=== PATIENT | male | born 1995 ===

== ENCOUNTER 2023-02-23 20:52 | Outpatient (REF) | payer OTHER, SELFPAY ==
[2023-02-23 21:20] LABS: Anion Gap 9.2 mmol/L (3-11); BUN 10 mg/dL (7-18); CO2 26.8 mmol/L (21.0-32.0); CREATININE 0.9 mg/dL (0.70-1.30); Calcium 9.6 mg/dL (8.5-10.1); Chloride 102 mmol/L (98-107); Estimated GFR 117.83 (mL/min/1.73m2); Glucose 165 mg/dL (74-106); Potassium 3.8 mmol/L (3.5-5.1); Sodium 138 mmol/L (136-145)
[2023-02-23 21:27] LABS: Hemoglobin A1C 10.8 % (<5.7)
== END 2023-02-23 20:53 | disposition home or self-care (01) ==
LOC: NCHCN 20:52
PROVIDERS: Visit Provider Family Medicine
DX: I10 Essential (primary) hypertension (principal); E10.65 Type 1 diabetes mellitus with hyperglycemia; E10.10 Type 1 diabetes mellitus with ketoacidosis without coma
CPT/HCPCS: 80048; 83036

== ENCOUNTER 2023-09-10 15:18 | Outpatient (REF) | payer OTHER, SELFPAY ==
[2023-09-10 14:58] LABS: COMMENT (LAB VIEW ONLY) 134.73 mg/dL; Microalb ug/mg Crea 12.2 ug/mg Cr
== END 2023-09-10 15:19 | disposition home or self-care (01) ==
LOC: NCHCN 15:18
PROVIDERS: Visit Provider Family Medicine
DX: E10.65 Type 1 diabetes mellitus with hyperglycemia (principal)
CPT/HCPCS: 82043; 82570